=== PATIENT | female | born 1985 | race Caucasian/White ===

== ENCOUNTER 2024-03-19 09:02 | Outpatient (CLI) | payer BC | END 2024-03-19 23:59 | disposition home or self-care (01) | LOC: RAD 09:02 | PROVIDERS: ATTEND Physician Assistant | DX: D13.5 Benign neoplasm of extrahepatic bile ducts (principal); K82.4 Cholesterolosis of gallbladder; R10.11 Right upper quadrant pain | CPT/HCPCS: 76700 ==

== ENCOUNTER 2024-10-10 13:01 | Outpatient (CLI) | payer BC | END 2024-10-10 23:59 | disposition home or self-care (01) | LOC: MRI 13:01 | PROVIDERS: ATTEND Internal Medicine Gastroenterology | DX: K82.8 Other specified diseases of gallbladder (principal); R10.11 Right upper quadrant pain | CPT/HCPCS: 74181; 74183 ==

== ENCOUNTER 2025-05-16 12:27 | Outpatient (CLI) | payer BC ==
[2025-05-16 14:02] LABS: MEAN PLATELET VOLUME 8.9 FL (7.4-10.4); RED CELL DISTRIBUTION WIDTH 13.0 % (11.5-14.5)
[2025-05-16 14:22] LABS: CREATININE 0.70 MG/DL (0.40-0.90); TOTAL CARBON DIOXIDE 27.9 MMOL/L (24-32); eGFR > 90 ML/MIN
[2025-05-18 07:11] LABS: ESTRADIOL 94.4 pg/mL (.); FSH, SERUM 8.4 mIU/mL (.); LUTEINIZING HORMONE 2.4 mIU/mL (.); TESTOSTERONE, SERUM 3 ng/dL (4-50)
[2025-05-18 13:58] LABS: ANTISTREPTOLYSIN O AB <20.0 IU/mL (0.0-200.0)
[2025-05-20 05:17] LABS: TESTOSTERONE, FREE, DIRECT 0.4 pg/mL (0.0-4.2)
[2025-05-20 13:32] LABS: ANTINUCLEAR ANTIBODIES Positive (Negative)
== END 2025-05-16 23:59 | disposition home or self-care (01) ==
LOC: LAB 12:27
PROVIDERS: ATTEND Physician Assistant
DX: R53.83 Other fatigue (principal)
CPT/HCPCS: 36415; 80053; 82670; 83001; 83002; 83036; 84402; 84403; 84439; 84443; 84550; 85025; 85651; 86038; 86060; 86140